=== PATIENT | female | born 1955 | race Caucasian/White ===

== ENCOUNTER → 2019-01-24 07:56 | Outpatient (CLI) | payer MEDICARE, OTHER, SELFPAY ==
--- NOTE | 2019-01-24 08:01 | AS_ITS ---
Renal Arterial Duplex Indications: 405.91 Unspecified renovascular hypertension. IMPRESSIONS 1. Less than 60% stenosis involving the right renal artery 2. Greater than 60% stenosis involving the left renal artery 3. 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 History: Risk factors: Current tobacco use. Hypertension. Dyslipidemia. Complete renal arterial duplex. Duplex scan and Doppler flow study including spectral analysis, color and vickers scale imaging. Height: Height: 165.1cm. Height: 65in. Weight: Weight: 90.7kg. Weight: 199.6lb. Body mass index: BMI: 33.3kg/m^2. Body surface area: BSA: 2.07m^2. Location: Vascular laboratory. Patient status: Outpatient. Tables: Arterial flow: + +--------+--------+ Location V sys V ed + +--------+--------+ Right renal - proximal 269cm/s 39.4cm/s + +--------+--------+ Right renal - mid 154cm/s 30.2cm/s + +--------+--------+ Right renal - distal 86.9cm/s 16.1cm/s + +--------+--------+ Left renal - proximal 180cm/s 28.2cm/s + +--------+--------+ Left renal - mid 186cm/s 32.5cm/s + +--------+--------+ Left renal - distal 86.9cm/s 16.2cm/s + +--------+--------+ Right renal-origin 261cm/s 45.2cm/s + +--------+--------+ Left renal-origin 396cm/s 54.2cm/s + +--------+--------+ Aorta-prox 136cm/s -------- + +--------+--------+ Renal anatomy: + +------+------+ Left Right + +------+------+ Long axis 10.4cm 10.9cm + +------+------+ Short axis 6.6cm 6.4cm + +------+------+ Cortical thickness 1.3cm 1.2cm + +------+------+ Velocity ratios: + +-----+ V sys + +-----+ Right renal/aortic 2 + +-----+ Left renal/aortic 2.9 + +-----+ (Report amended ) Electronically signed by: Wale Aranda [id number]
--- NOTE | 2019-01-24 08:01 | CI_ITS ---
Cerebrovascular Exam Indications: Follow-up carotid 433.10. IMPRESSIONS 1. The bilateral vertebral arteries are patent with normal antegrade flow. 2. Study suggests 20-49% stenosis involving the right internal carotid artery. 3. Study suggests less than 20% stenosis involving the left internal carotid artery. History: Risk factors: Current tobacco use. Hypertension. Hyperlipidemia. Labs, prior tests, procedures, and surgery: Left endarterectomy. Aug 2017 Labs, prior tests, procedures, and surgery: Left endarterectomy. Aug 2017 Carotid duplex study. Complete study and Doppler flow study including spectral analysis, color and vickers scale imaging. Height: Height: 165.1cm. Height: 65in. Weight: Weight: 90.7kg. Weight: 199.6lb. Body mass index: BMI: 33.3kg/m^2. Body surface area: BSA: 2.07m^2. Location: Vascular laboratory. Patient status: Outpatient. Tables: Arterial flow: + +--------+--------+ Location V sys V ed + +--------+--------+ Right CCA - proximal 78.6cm/s 19.6cm/s + +--------+--------+ Right CCA - distal 88cm/s 19.6cm/s + +--------+--------+ Right ECA 185cm/s 17.8cm/s + +--------+--------+ Right ICA - proximal 100cm/s 20.1cm/s + +--------+--------+ Right ICA - mid 147cm/s 36.3cm/s + +--------+--------+ Right ICA - distal 105cm/s 23.7cm/s + +--------+--------+ Right vertebral 59.3cm/s 16.3cm/s + +--------+--------+ Left CCA - proximal 102cm/s 19.3cm/s + +--------+--------+ Left CCA - distal 85.3cm/s 17.8cm/s + +--------+--------+ Left ECA 147cm/s 28.1cm/s + +--------+--------+ Left ICA - proximal 55.6cm/s 11.9cm/s + +--------+--------+ Left ICA - mid 105cm/s 31.9cm/s + +--------+--------+ Left ICA - distal 112cm/s 31.6cm/s + +--------+--------+ Left vertebral 61.3cm/s 17.2cm/s + +--------+--------+ Velocity ratios: + + + + + + Right, V sys Right, V ed Left, V sys Left, V ed + + + + + + Max ICA/dist CCA 1.67 1.85 1.31 1.79 + + + + + + (Report amended ) Electronically signed by: Wale Aranda [id number]
== END ==
PROVIDERS: Visit Provider Physician Assistant
DX: R09.89 Other specified symptoms and signs involving the circulatory and respiratory systems; I10 Essential (primary) hypertension; I65.23 Occlusion and stenosis of bilateral carotid arteries
CPT/HCPCS: 93880; 93976

== ENCOUNTER → 2020-01-29 11:15 | Outpatient (CLI) | payer MEDICARE, OTHER, SELFPAY ==
[2020-01-29 12:07] LABS: Basophils # 0.1 K/mm3 (0-0.2); Basophils % 0.9 % (0.1-2.0); Eosinophils # 0.2 K/mm3 (0.0-0.4); Eosinophils % 2.6 % (0.1-12.0); Hematocrit 45.6 % (37.0-47.0); Hemoglobin 15.4 g/dL (12.2-16.2); Lymphocytes # 2.5 K/mm3 (0.7-4.5); Mean Corpuscular HGB Conc 33.8 g/dL (31.8-35.4); Mean Corpuscular Hemoglobin 33.4 pg (27.0-31.2); Mean Corpuscular Volume 98.6 fl (81-99); Monocytes # 0.4 K/mm3 (0.1-1.0); Monocytes % 4.5 % (1.7-9.3); Neutrophils # 4.7 K/mm3 (1.8-7.8); Platelet Count 300 K/mm3 (142-424); Red Blood Count 4.63 M/mm3 (4.20-5.40); Red Cell Distribution Width 13.4 % (11.5-17.5); White Blood Count 7.8 K/mm3 (4.8-10.8)
[2020-01-29 12:44] LABS: Alanine Aminotransferase 22 U/L (12-78); Albumin Level 4.8 g/dl (3.5-5.0); Alkaline Phosphatase 146 U/L (38-126); Anion Gap 15.6 mEq/L (5-15); Aspartate Amino Transferase 26 U/L (14-36); Bilirubin,Direct 0.1 mg/dl (0.0-0.4); Bilirubin,Indirect 0.7 mg/dL (0.0-0.9); Bilirubin,Total 0.8 mg/dl (0.2-1.3); Bilirubin,Unconjugated 0.6 mg/dL (0.0-1.1); Blood Urea Nitrogen 8 mg/dl (7-17); Calcium 9.7 mg/dl (8.4-10.2); Carbon Dioxide 24 mmol/L (22.0-30.0); Chloride 98 mmol/L (98-107); Chol/HDL Ratio 2.1 (1-3.5); Cholesterol 127 mg/dl (140-200); Estimated Glomerular Filt Rate 50 ml/min (>60); GFR (African American) 60 ML/MIN (>60); Glucose 112 mg/dl (74-100); HDL Cholesterol 60 mg/dl (40-60); Potassium 4.6 mmoL/L (3.5-5.1); Sodium 133 mmol/L (136-145); Total Protein,Serum 7.6 g/dl (6.3-8.2); Triglycerides 116 mg/dl (30-150); VLDL Cholesterol 23 mg/dL (0-40)
[2020-01-29 12:55] LABS: Direct LDL Cholesterol 77.53 mg/dL (100-129)
[2020-01-29 13:15] LABS: Thyroid Stimulating Hormone 1.07 uIU/mL (0.465-4.68)
== END ==
PROVIDERS: PCP Family Medicine; Visit Provider Urology
DX: R00.2 Palpitations; R06.00 Dyspnea, unspecified; D45 Polycythemia vera; E78.2 Mixed hyperlipidemia; F17.200 Nicotine dependence, unspecified, uncomplicated; I15.0 Renovascular hypertension; I65.23 Occlusion and stenosis of bilateral carotid arteries; I70.1 Atherosclerosis of renal artery; Z98.890 Other specified postprocedural states; I73.9 Peripheral vascular disease, unspecified; E11.9 Type 2 diabetes mellitus without complications; I11.9 Hypertensive heart disease without heart failure
CPT/HCPCS: 36415; 80048; 80061; 80076; 84439; 84443; 85025; 93270

== ENCOUNTER → 2020-02-03 14:21 | Outpatient (CLI) | payer MEDICARE, OTHER, SELFPAY ==
--- NOTE | 2020-02-03 14:22 | CA_ITS ---
APPROVED REPORT Protective Service Specialist: Caryl Bearden RVT Laterality: Bilateral Study Quality: Good Indications: left carotid bruit, [place] Risk Factors Hypertension: Hyperlipidemia Smoking Surgery/Intervention Endarterectomy: left Doppler Spectral Velocity Analysis ECA (R) 139.00/20.40 cm/s ECA (L) 266.00/33.60 cm/s dICA (R) 103.00/34.60 cm/s dICA (L) 94.70/31.30 cm/s Osiris (R) 140.00/33.00 cm/s Osiris (L) 95.30/29.90 cm/s pICA (R) 110.00/25.90 cm/s pICA (L) 61.30/16.50 cm/s dCCA (R) 88.00/19.60 cm/s dCCA (L) 93.50/22.80 cm/s pCCA (R) 80.90/22.00 cm/s pCCA (L) 88.00/18.90 cm/s Vert (R) 38.50/ cm/s Vert (L) 51.90/14.00 cm/s ICA/CCA 1.59 ICA/CCA 1.02 Conclusion Study suggests 20-49% stenosis of the right internal cartoid artery unchanged from the 01/24/19 study. Study suggests less than 20% stenosis of the left internal cartoid artery unchanged from the 01/24/19 study. Antegrade flow seen bilateral vertebral arteries. Electronically signed by : Wale Aranda MD 02/03/2020 18:04:31
== END ==
PROVIDERS: PCP Family Medicine; Visit Provider Urology
DX: I65.23 Occlusion and stenosis of bilateral carotid arteries; R06.00 Dyspnea, unspecified; R00.2 Palpitations; R09.89 Other specified symptoms and signs involving the circulatory and respiratory systems; Z98.890 Other specified postprocedural states; D45 Polycythemia vera; E78.2 Mixed hyperlipidemia; F17.200 Nicotine dependence, unspecified, uncomplicated; I15.0 Renovascular hypertension; I70.1 Atherosclerosis of renal artery
CPT/HCPCS: 93306; 93880

== ENCOUNTER → 2021-02-03 08:24 | Outpatient (CLI) | payer MEDICARE, OTHER, SELFPAY ==
--- NOTE | 2021-02-03 08:42 | CA_ITS ---
APPROVED REPORT Restaurant Mgr: TALISHA FREEMAN Laterality: Bilateral Study Quality: Excellent Indications: [place] Risk Factors Hypertension: TIA/CVA History Hyperlipidemia Smoking [place] Doppler Spectral Velocity Analysis ECA (R) 192.80/18.80 cm/s ECA (L) 225.50/33.30 cm/s dICA (R) 206.30/48.70 cm/s dICA (L) 122.50/36.00 cm/s Osiris (R) 135.40/34.30 cm/s Osiris (L) 123.40/38.60 cm/s pICA (R) 118.20/24.80 cm/s pICA (L) 110.50/34.30 cm/s dCCA (R) 74.50/21.40 cm/s dCCA (L) 102.50/26.20 cm/s pCCA (R) 97.70/16.30 cm/s pCCA (L) 105.50/23.20 cm/s Vert (R) 49.40/21.00 cm/s Vert (L) 61.40/16.50 cm/s ICA/CCA 2.70 ICA/CCA 1.20 Findings Duplex evaluation demonstrates stenosis of the right proximal internal carotid artery in the range of 50-69% with PSV =140 cm/sec, EDV <100 cm/sec, and IC/CC Ratio <4.0. Duplex evaluation demonstrates stenosis of the left proximal internal carotid artery in the range of 20-49% with PSV <140 cm/sec, EDV <100 cm/sec, and IC/CC Ratio <4.0. B-Mode Ultrasound demonstrates mild intraluminal plaque in the right common Carotid Artery. B-Mode Ultrasound demonstrates minimal intraluminal plaque in the left internal Carotid Artery. Duplex evaluation demonstrates antegrade flow of the bilateral Vertebral Arteries. Conclusion Duplex evaluation demonstrates stenosis of the right proximal internal carotid artery in the range of 50-69% with PSV =140 cm/sec, EDV <100 cm/sec, and IC/CC Ratio <4.0. Duplex evaluation demonstrates stenosis of the left proximal internal carotid artery in the range of 20-49% with PSV <140 cm/sec, EDV <100 cm/sec, and IC/CC Ratio <4.0. B-Mode Ultrasound demonstrates mild intraluminal heterogenous plaque in the right common Carotid Artery. B-Mode Ultrasound demonstrates minimal intraluminal hypodense plaque in the left internal Carotid Artery. Duplex evaluation demonstrates antegrade flow of the bilateral Vertebral Arteries. Electronically signed by : Marciano Mccoy MD 02/04/2021 11:50:41
--- NOTE | 2021-02-03 08:42 | CA_ITS ---
APPROVED REPORT Homemaking Rehabilitation Consultant: Caryl Bearden RVT Study Quality: Good Indications: [place] Risk Factors Hypertension Hyperlipidemia Smoking Renal Artery Doppler Origin (R) 332.5/ cm/sec Proximal (R) 301.7/ cm/sec Mid (R) 239.6/ cm/sec Distal (R) 145.1/ cm/sec Renal Aorta Ratio (R) 2.69 Segmental A. (R) 60.7/15.7 cm/sec RI: 0.74 Segmental A. Sup (R) 60.7/15.7 cm/sec Segmental A. Mid (R) 56.8/15.7 cm/sec Segmental A. Inf (R) 57.8/11.8 cm/sec Origin (L) 271.0/ cm/sec Proximal (L) 274.8/ cm/sec Mid (L) 143.1/ cm/sec Distal (L) 126.1/ cm/sec Renal Aorta Ratio (L) 2.23 Segmental A. (L) 77.9/21.8 cm/sec RI: 0.72 Segmental A. Sup (L) 77.9/21.8 cm/sec Segmental A. Mid (L) 76.3/17.1 cm/sec Segmental A. Inf (L) 71.6/26.5 cm/sec Renal Measurements Kidney Size (R) 10.5x6.5 cm Cortical Thickness (R) 1.0 cm Kidney Size (L) 10.3x6.1 cm Cortical Thickness (L) 1.2 cm Findings Study suggests greater than 60% stenosis of the bilateral renal arteries. Conclusion Study suggests greater than 60% stenosis of the bilateral renal arteries. Electronically signed by : Marciano Mccoy MD 02/04/2021 11:49:13
--- NOTE | 2021-02-03 08:42 | CA_ITS ---
APPROVED REPORT EXAM: Comprehensive 2D, Doppler, and color-flow Echocardiogram Ecology Professor: Jing Bowers RT(R) Ht: 5 ft 5 in Wt: 208lbs BSA: 2.01 BP: 158/63 mmHg Indications: hx TIA'S, PAD, HTN, smoker, hyperlipidemia 2D Dimensions LVOT 2.01 cm (M/F) 1.5-2.5 LVEF (Mckenzie's) 64.50 % F: 54 - 74 LV Volume 94.80 mL F: 46 - 106 LV Volume Index 47.16 mL/m2 F: 29 - 61 LA Volume 50.20 mL LA Volume Index 24.97 mL/m2 (M/F) 16-34 M-Mode Dimensions RVDd 2.70 cm (0.9-2.6) LA Diam 3.54 cm (1.9-4.0) LVDd 4.37 cm (3.5-5.7) Ao Diam 2.40 cm (2.0-3.7) LVDs 3.04 cm (3.5-5.7) IVSd 0.72 cm (0.6-1.1) PWd 0.76 cm (0.6-1.1) EF (Teich) 58.10% FS 30.40% EDV (Teich) 86.30 mL ESV (Teich) 36.20 mL LV Diastology E Decel Time 173.00 (160-240 msec) E/A Ratio 1.9 MED E' 12.80 (< 7 cm/sec) E'/MED E' Ratio 6.48 (>14) LAT E' 17.10 (<10 cm/sec) E/LAT E' Ratio 4.85 (>14) Mitral Valve MV E Max Rich. 83.00 (40-130 cm/s) MV A Velocity 43.00 (40-130 cm/s) E/A Ratio 1.94 MV Decel. Time 173.00 (160-240 ms) MV PHT 51.00 ms Tricuspid Valve TR P. Velocity 257.00 cm/s RAP Estimate 15.00 mmHg RVSP 41.50 mmHg Left Ventricle Left atrium is mildly enlarged, left ventricle is normal size, mild concentric left ventricular hypertrophy, visually estimated ejection fraction 55% with no regional wall motion abnormality, diastolic parameters are inconclusive. Right Ventricle Right atrium and right ventricle are mildly enlarged with normal contractility. Aortic Valve Aortic valve is minimally thickened and fibrosed, there is no aortic stenosis or aortic insufficiency. Mitral Valve Mitral valve grossly normal, there is trace mitral regurgitation. Tricuspid Valve Tricuspid valve grossly normal, there is mild tricuspid regurgitation, calculated right ventricular systolic pressure is 41 mmHg. Pulmonic Valve Pulmonic valve is poorly visualized. Great Vessels Aortic root is normal size. Pericardium No significant pericardial effusion noted. Conclusion 1. Mild biatrial normal, normal left ventricular size, mild concentric left ventricular hypertrophy, visually estimated ejection fraction 55% with no regional wall motion abnormality, diastolic parameters are inconclusive. 2. Mildly enlarged right ventricle with normal contractility. 3. Trace mitral and mild tricuspid regurgitation, calculated right ventricular systolic pressure is 41 mmHg. 4. No significant pericardial effusion noted. Electronically signed by : Leoncio Alonzo, 02/04/2021 10:59:43
[2021-02-03 09:15] LABS: Basophils # 0.1 K/mm3 (0-0.2); Basophils % 0.9 % (0.1-2.0); Eosinophils # 0.3 K/mm3 (0.0-0.4); Eosinophils % 4.4 % (0.1-12.0); Hematocrit 42.5 % (37.0-47.0); Hemoglobin 14.7 g/dL (12.2-16.2); Lymphocytes # 2.6 K/mm3 (0.7-4.5); Lymphocytes % 32.5 % (10-50); Mean Corpuscular HGB Conc 34.5 g/dL (31.8-35.4); Mean Corpuscular Hemoglobin 31.9 pg (27.0-31.2); Mean Corpuscular Volume 92.4 fl (81-99); Mean Platelet Volume 7.4 fl (7.4-10.4); Monocytes # 0.4 K/mm3 (0.1-1.0); Monocytes % 5.1 % (1.7-9.3); Neutrophils # 4.5 K/mm3 (1.8-7.8); Neutrophils % 57.1 % (37.0-80.0); Platelet Count 286 K/mm3 (142-424); Red Cell Distribution Width 13.7 % (11.5-17.5); White Blood Count 7.9 K/mm3 (4.8-10.8)
[2021-02-03 10:51] LABS: Anion Gap 10.8 mEq/L (5-15); Bilirubin,Direct 0.3 mg/dl (0.0-0.4); Bilirubin,Indirect 0.3 mg/dL (0.0-0.9); Bilirubin,Total 0.6 mg/dl (0.2-1.3); Blood Urea Nitrogen 13 mg/dl (7-17); Calcium 9.3 mg/dl (8.4-10.2); Carbon Dioxide 25 mmol/L (22.0-30.0); Chloride 109 mmol/L (98-107); Estimated Glomerular Filt Rate 50 ml/min (>60); GFR (African American) 60 ML/MIN (>60); Glucose 99 mg/dl (74-100); Potassium 4.8 mmoL/L (3.5-5.1); Sodium 140 mmol/L (136-145)
[2021-02-03 10:52] LABS: Alanine Aminotransferase 20 U/L (12-78); Albumin Level 4.4 g/dl (3.5-5.0); Alkaline Phosphatase 115 U/L (38-126); Aspartate Amino Transferase 24 U/L (14-36); Bilirubin,Unconjugated 0.3 mg/dL (0.0-1.1); Cholesterol 130 mg/dl (140-200); HDL Cholesterol 43 mg/dl (40-60); Total Protein,Serum 6.9 g/dl (6.3-8.2); Triglycerides 126 mg/dl (30-150); VLDL Cholesterol 25 mg/dL (0-40)
[2021-02-03 11:03] LABS: Direct LDL Cholesterol 66.05 mg/dL (100-129)
[2021-02-03 11:07] LABS: Free T4 (Free Thyroxine) 0.85 ng/dl (0.78-2.19)
== END ==
PROVIDERS: PCP Family Medicine; Visit Provider Internal Medicine
DX: R06.00 Dyspnea, unspecified; I65.23 Occlusion and stenosis of bilateral carotid arteries; I70.1 Atherosclerosis of renal artery; R09.89 Other specified symptoms and signs involving the circulatory and respiratory systems; D45 Polycythemia vera; R00.2 Palpitations; I11.9 Hypertensive heart disease without heart failure; E11.9 Type 2 diabetes mellitus without complications; E78.5 Hyperlipidemia, unspecified; F17.200 Nicotine dependence, unspecified, uncomplicated; Z98.890 Other specified postprocedural states
CPT/HCPCS: 36415; 80048; 80061; 80076; 84439; 84443; 85025; 93306; 93880; 93976

== ENCOUNTER → 2022-02-01 06:56 | Outpatient (CLI) | payer MEDICARE, OTHER, SELFPAY ==
--- NOTE | 2022-02-01 06:57 | CA_ITS ---
FINAL REPORT TECHNIQUE: Color Doppler, duplex Doppler and vickers scale sonography of the bilateral neck arterial vasculature was performed. Velocities were measured in the carotid arteries. Stenosis evaluation based on the validated velocity criteria. CLINICAL HISTORY: [place], Left CEA 4-5 yrs ago, Smoker, HTN, HLD, FINDINGS: The peak systolic velocity of the right common carotid artery is 78 cm/s. The peak systolic velocity of the right internal carotid artery is 154 cm/s and end diastolic velocity 39 cm/s. The ICA/CCA ratio is 2.37. A moderate amount of plaque is present. The right external carotid artery is patent. The right vertebral artery is patent with antegrade flow. The peak systolic velocity of the left common carotid artery is 103 cm/s. The peak systolic velocity of the left internal carotid artery is 104 cm/s and end diastolic velocity 28 cm/s. The ICA/CCA ratio is 1.33. A small amount of plaque is present. The left external carotid artery is patent.The left vertebral artery is patent with antegrade flow. IMPRESSION: Less than 50% bilateral carotid stenoses. Bilateral patent vertebral arteries with antegrade flow. If indicated, CTA or MRA could further evaluate. Reviewed, Interpreted and Dictated by Richard Kate III, MD Transcribed by Margarita Lee Authenticated and . [facility]
[2022-02-01 08:06] LABS: Basophils # 0.1 K/mm3 (0-0.2); Basophils % 1.3 % (0.1-2.0); Eosinophils # 0.3 K/mm3 (0.0-0.4); Eosinophils % 3.2 % (0.1-12.0); Hematocrit 46.8 % (37.0-47.0); Hemoglobin 15.7 g/dL (12.2-16.2); Lymphocytes # 2.6 K/mm3 (0.7-4.5); Lymphocytes % 32.3 % (10-50); Mean Corpuscular HGB Conc 33.6 g/dL (31.8-35.4); Mean Corpuscular Hemoglobin 32.3 pg (27.0-31.2); Mean Corpuscular Volume 96.1 fl (81-99); Mean Platelet Volume 7.6 fl (7.4-10.4); Monocytes # 0.5 K/mm3 (0.1-1.0); Monocytes % 6.1 % (1.7-9.3); Neutrophils # 4.7 K/mm3 (1.8-7.8); Neutrophils % 57.1 % (37.0-80.0); Platelet Count 319 K/mm3 (142-424); Red Blood Count 4.88 M/mm3 (4.20-5.40); Red Cell Distribution Width 13.8 % (11.5-17.5); White Blood Count 8.2 K/mm3 (4.8-10.8)
[2022-02-01 08:21] LABS: Chloride 100 mmol/L (98-107); Potassium 4.9 mmoL/L (3.5-5.1); Sodium 135 mmol/L (136-145)
[2022-02-01 08:23] LABS: Blood Urea Nitrogen 13 mg/dl (7-17); Estimated Glomerular Filt Rate 55 ml/min (>60); GFR (African American) 67 ML/MIN (>60)
[2022-02-01 08:24] LABS: Alanine Aminotransferase 27 U/L (12-78); Albumin Level 4.8 g/dl (3.5-5.0); Alkaline Phosphatase 135 U/L (38-126); Anion Gap 13.9 mEq/L (5-15); Aspartate Amino Transferase 31 U/L (14-36); Bilirubin,Direct 0.1 mg/dl (0.0-0.4); Bilirubin,Indirect 0.6 mg/dL (0.0-0.9); Bilirubin,Total 0.7 mg/dl (0.2-1.3); Bilirubin,Unconjugated 0.6 mg/dL (0.0-1.1); Calcium 9.8 mg/dl (8.4-10.2); Carbon Dioxide 26 mmol/L (22.0-30.0); Cholesterol 140 mg/dl (140-200); Glucose 116 mg/dl (74-100); HDL Cholesterol 47 mg/dl (40-60); Total Protein,Serum 7.3 g/dl (6.3-8.2); Triglycerides 129 mg/dl (30-150); VLDL Cholesterol 26 mg/dL (0-40)
[2022-02-01 08:35] LABS: Direct LDL Cholesterol 66.04 mg/dL (100-129)
[2022-02-01 08:55] LABS: Thyroid Stimulating Hormone 1.52 uIU/mL (0.465-4.68)
== END ==
PROVIDERS: PCP Family Medicine; Visit Provider Physician Assistant
DX: R06.00 Dyspnea, unspecified; I65.23 Occlusion and stenosis of bilateral carotid arteries; D45 Polycythemia vera; E78.2 Mixed hyperlipidemia; I15.0 Renovascular hypertension; I70.1 Atherosclerosis of renal artery; I73.9 Peripheral vascular disease, unspecified; R09.89 Other specified symptoms and signs involving the circulatory and respiratory systems; I63.9 Cerebral infarction, unspecified; I11.9 Hypertensive heart disease without heart failure; E11.9 Type 2 diabetes mellitus without complications; F17.200 Nicotine dependence, unspecified, uncomplicated; Z98.890 Other specified postprocedural states
CPT/HCPCS: 36415; 80048; 80061; 80076; 84439; 84443; 85025; 93880

== ENCOUNTER → 2022-04-15 13:45 | Outpatient (POV) | payer MEDICARE, OTHER, SELFPAY | PROVIDERS: Visit Provider Internal Medicine Nephrology | DX: Z00.00 Encounter for general adult medical examination without abnormal findings (principal) ==

== ENCOUNTER → 2022-08-10 12:42 | Outpatient (CLI) | payer MEDICARE, OTHER, SELFPAY ==
--- NOTE | 2022-08-10 12:45 | US_ITS ---
FINAL REPORT TECHNIQUE: Ultrasound images of the kidneys and bladder were obtained. CLINICAL HISTORY: CKD STAGE 3 FINDINGS: The right kidney measures 10.2 cm in length. It is normal in echogenicity. There is no hydronephrosis. The left kidney measures 11.3 cm in length. It is normal in echogenicity. There is no hydronephrosis. There is an 11 mm cyst in left kidney. The spleen is within normal limits. IMPRESSION: Left renal cyst. Reviewed, Interpreted and Dictated by Richard Kate III, MD Transcribed by Margarita Lee Authenticated and [facility]
== END ==
PROVIDERS: PCP Family Medicine; Visit Provider Internal Medicine Nephrology
DX: I10 Essential (primary) hypertension (principal); N18.30 Chronic kidney disease, stage 3 unspecified
CPT/HCPCS: 76770